=== PATIENT | male | born 1995 | race Caucasian/White ===

== ENCOUNTER 2020-11-15 11:51 | Emergency (ER) | payer BC ==
[~2020-11-15] VITALS: Ht 177.8 cm; Wt 107.5 kg
[2020-11-15 11:52] VITALS: BP 165/88
[2020-11-15] MEDS ORDERED: PROPARACAINE 0.5% OPHTH SOL 15ML OS ONE (12:50)
[2020-11-15] MEDS ORDERED: FLUORESCEIN OPHTH 1 MG STRIP OS ONE (12:50)
[2020-11-15] MEDS ORDERED: ONDANSETRON 4 MG ORAL DISINTEGRATING TAB PO ONE (13:25)
[2020-11-15] MEDS ORDERED: OCUF0.25 OP (13:49)
[2020-11-15] MEDS ORDERED: ACETAMINOPHEN 325 MG TAB PO ONE (13:50)
== END 2020-11-15 14:24 | disposition home or self-care (01) ==
LOC: M ED 11:51
DX: S05.02XA Injury of conjunctiva and corneal abrasion without foreign body, left eye, initial encounter (principal); X58.XXXA Exposure to other specified factors, initial encounter; Y92.009 Unspecified place in unspecified non-institutional (private) residence as the place of occurrence of the external cause; Y93.89 Activity, other specified; Y99.9 Unspecified external cause status; J30.9 Allergic rhinitis, unspecified; F17.200 Nicotine dependence, unspecified, uncomplicated
CPT/HCPCS: 99282; Q0162

== ENCOUNTER 2020-12-23 08:50 | Emergency (ER) | payer BC ==
[~2020-12-23] VITALS: Ht 177.8 cm; Wt 109.6 kg
[~2020-12-23 08:50] MED LIST: OCUF0.25 OP
[2020-12-23] MEDS ORDERED: PROPARACAINE 0.5% OPHTH SOL 15ML OS ONE (09:45)
[2020-12-23] MEDS ORDERED: FLUORESCEIN OPHTH 1 MG STRIP OS ONE (09:45)
[2020-12-23] MEDS ORDERED: OCUF0.25 OP (10:29)
[2020-12-23 10:41] VITALS: BP 132/82
== END 2020-12-23 10:50 | disposition home or self-care (01) ==
LOC: M ED 08:50
DX: S05.02XA Injury of conjunctiva and corneal abrasion without foreign body, left eye, initial encounter (principal); X58.XXXA Exposure to other specified factors, initial encounter; Y92.9 Unspecified place or not applicable; Y93.9 Activity, unspecified; Y99.9 Unspecified external cause status

== ENCOUNTER → 2022-06-23 | Outpatient (REF) | LOC: M EMP 06-22 08:08 | PROVIDERS: ATTEND Family Medicine | DX: Z20.822 Contact with and (suspected) exposure to COVID-19 (principal) ==

== ENCOUNTER → 2022-06-29 | Outpatient (REF) | LOC: M EMP 13:35 | PROVIDERS: ATTEND Family Medicine | DX: Z11.52 Encounter for screening for COVID-19 (principal) ==

== ENCOUNTER → 2024-09-19 | Outpatient (REF) | LOC: M EMP 10:18 | PROVIDERS: ATTEND Family Medicine | DX: Z20.822 Contact with and (suspected) exposure to COVID-19 (principal) ==